=== PATIENT | female | born 1965 | race African-American/Black ===

== ENCOUNTER 2016-08-21 17:21 | Emergency (ER) | payer MEDICAID, OTHER ==
[~2016-08-21] VITALS: Ht 160 cm; Wt 72.7 kg
[~2016-08-21 17:21] MED LIST: HTN PO
[2016-08-21] MEDS ORDERED: AMLO-512 PO (17:39)
[2016-08-21 17:55] VITALS: BP 173/116
== END 2016-08-21 18:46 | disposition home or self-care (01) ==
LOC: EMS 17:24
DX: R04.0 Epistaxis (principal); I10 Essential (primary) hypertension
CPT/HCPCS: 99281